=== PATIENT | female | born 1940 | race Caucasian/White ===

== ENCOUNTER → 2018-07-02 | Outpatient (CLI) | payer MEDICARE, OTHER ==
[~2018-07-02] MED LIST: ASP81TEC PO; ATEN25TA PO; CALC-80 PO; CLN.1T PO; LISI40TA PO; LORA10CA PO; NF-TYLARTH PO; OMEG-12 PO; OXYC-281 PO; PRAV80TA PO; TMSL.4C PO
--- NOTE | 2018-07-02 11:55 | Diagnostic Imaging Report ---
INDICATION: Right shoulder pain. COMPARISON: None. FINDINGS: Three views of the right shoulder were obtained. There is no fracture, dislocation, or other acute bony abnormality identified. Qucjheko-xz-kcwyqnzt osteoarthritic changes are noted. The soft tissues appear unremarkable. No radiopaque foreign bodies identified. The visualized portions of the right lung are clear. IMPRESSION: 1. No acute fractures or dislocations of the right shoulder. 2. Aznhixhb-hx-uwprnzdx osteoarthritic changes. Dictated by: Dictated on workstation # [id number]
== END ==
LOC: RAD FS 11:19
PROVIDERS: ATTEND Nurse Practitioner
DX: M19.011 Primary osteoarthritis, right shoulder (principal)
CPT/HCPCS: 73030